=== PATIENT | female | born 1950 | race Caucasian/White ===

== ENCOUNTER 2023-09-19 15:06 | Inpatient (IN) | payer MEDICARE, OTHER, SELFPAY ==
[2023-09-19] VITALS (8 sets, daily range): BP systolic 92–137; BP diastolic 56–83
--- NOTE | 2023-09-19 07:39 | ED.GENMED ---
History of Present Illness
General
Chief Complaint: Abdominal Pain
Source: patient
Exam Limitations: none
Time Seen by Provider: 09/19/23 07:18
Travel History
Have you had any contact with someone who has COVID-19?: No
Do you have any symptoms of coronavirus? Fever > 100 degrees, chills, cough, shortness of breath, sore throat, loss of taste or smell, muscle aches, or headache?: No
History of Present Illness
History of Present Illness:
73-year-old female with history of hyperlipidemia, hypertension GERD presents complaining of onset of chills lower and right-sided abdominal pain with nausea vomiting and diarrhea since last night. She states she has had some pieces of blood coming
out in her stool. She notes ongoing pain that radiates in a bandlike distribution around the abdomen. The pain is not pleuritic. No known sick contacts. No prior abdominal surgical history. No history of inflammatory bowel disease.
Past History
Past History
ED Past Medical History: Arrthythmia
ED Past Surgical History: None
Social History
Tobacco: Non-smoker
Employment: Employed (School nurse)
Family History
Family History: Negative Early CAD
Phy Exam
Physical Exam
Physical Exam:
General: Well-appearing female no acute respiratory distress
ENT: Normocephalic atraumatic
Heart: Regular rate and rhythm no murmurs
Lungs: Clear no wheeze or rales
Abdomen is soft tender to the lower abdomen bilaterally and more so to the right mid abdomen. Mild guarding no rebound tenderness normal bowel sounds nondistended
Extremities: No cyanosis
Course
Orders/Labs/Results
Orders:
Orders
09/19/23 07:35
0.9% Sodium Chloride 1000 ml [Nss] 1,000 ml IV BOLUS
09/19/23 07:36
CT Abd/pelvis W Iv Cont Urgent
Comment:
Reason For Exam: lower abdominal and right sided pain
09/19/23 08:19
Complete Blood Count/With Diff Urgent
09/19/23 09:20
Basic Metabolic Panel Urgent
Lipase Urgent
Magnesium Urgent
Comment: ADD ON
09/19/23 09:21
Urinalysis Reflex To Culture Urgent
Date Specimen was Collected: 09/19/23
Time Specimen was Collected: 08:50
09/19/23 11:50
LFT [Fmpys-Sayn-Pndvoya] Urgent
Potassium Urgent
09/19/23 12:30
Add On- LAB Urgent
Tests Added?: magnesium, PTH, iCal
09/19/23 12:51
Electrocardiogram (*1) Urgent
Reason for Study: QTc Monitoring
EKG- Treatment ONCE
09/19/23 12:52
Calcium Gluconate 1 gram/100mL [Calcium Gluconate] 1 gram in 100 ml IV ONCE
Piperacillin/Tazo 3.375 Gram [Zosyn] 3.375 gram in 50 ml IV NOW
Abnormal Lab Results
09/19/23 09/19/23 09/19/23
08:19 09:20 11:50
WBC 11.7 H 10^3/uL
(4.8-10.8)
RDW 15.6 H %
(11.5-14.5)
Absolute Neuts (auto) 9.8 H 10^3/uL
(1.4-6.5)
Absolute Lymphs (auto) 1.0 L 10^3/uL
(1.2-3.4)
Absolute Monos (auto) 0.8 H 10^3/uL
(0.1-0.6)
Neutrophils % 83.9 H %
(42.2-75.2)
Lymphocytes % 8.4 L %
(20.5-51.1)
Chloride 118 H mmol/L
(98-107)
Carbon Dioxide 17 L mmol/L
(22-30)
Creatinine 0.4 L mg/dL
(0.6-1.0)
Calcium 6.0 L* mg/dl
(8.4-10.2)
Total Protein 6.0 L g/dl
(6.3-8.2)
Lipase 17 L U/L
(23-300)
09/19/23 08:19
09/19/23 11:50
Vital Signs
Initial and Last Documented VS:
Initial Vital Signs
Temp Pulse Resp BP Pulse Ox
99.7 F 90 18 137/83 97
09/19/23 06:57 09/19/23 06:57 09/19/23 06:57 09/19/23 06:57 09/19/23 06:57
Last Documented Vital Signs
Temp Pulse Resp BP Pulse Ox
99.7 F 90 18 117/70 97
09/19/23 06:57 09/19/23 06:57 09/19/23 06:57 09/19/23 11:02 09/19/23 06:57
MDM/Problems Addressed
Differential Diagnosis Includes:
Abdominal pain with nausea and diarrhea. Question possible viral illness versus colitis versus appendicitis given the right side
Will check labs including lipase. Urinalysis ordered as well. Fluids ordered. CT with IV contrast ordered. Patient has a documented shellfish allergy however she has tolerated IV contrast in the past without any issues. I reviewed prior records
which demonstrated she had a CT scan in 2018 with contrast and there was no issues at that time.
Other medical issues affecting today's care may include recent initiation of Depakote for occipital neuralgia. She has had 3 doses. Do not suspect this is the source of patient's symptoms
*Critical Care Note
Total Time (30-74mins, 75-104mins- exclusive of procedures): Not Applicable
Update Note
Update Note:
Patient noted to have hypocalcemia which is new. Calcium is 6.0. Discussed this with nephrology who recommended IV calcium. This was ordered. As well as magnesium, ionized calcium and PTH. CT demonstrates 15 cm segment of colitis. Zosyn
ordered to cover. Will admit to hospital.
ED Attending Note
-
Portions of this chart may have been created with voice recognition software.� Occasional wrong word or��sound alike� substitutions may have occurred due to the inherent limitations of voice recognition software.
Discharge Plan
Departure
Patient Disposition: Admit
Date of Disposition: 09/19/23
Time of Disposition: 13:43
Admit to: Telemetry
Presentation/result/management discussed w/ accepting MD/DO: Hospitalist
Patient with high blood pressure during this ER visit?: No
Discharge Problem:
Hypocalcemia, Colitis
Prescriptions:
No Action
cyanocobalamin (vitamin B-12) [Vitamin B-12] 1,000 mcg Tablet
1,000 mcg PO MOWEFR
cholecalciferol (vitamin D3) [Vitamin D3] 25 mcg (1,000 unit) Tablet
50 mcg PO DAILY
atorvastatin 40 MG tablet
40 mg PO HS
zolmitriptan 2.5 mg tablet
2.5 mg PO DAILY PRN (Reason: migraine)
ascorbic acid (vitamin C) [Vitamin C] 500 mg Tablet
500 mg PO QPM
ferrous sulfate 325 mg (65 mg iron) Tablet
325 mg PO QPM
omeprazole 20 mg capsule,delayed release(DR/EC)
20 mg PO QPM
verapamil 240 mg tablet extended release
240 mg PO DAILY
lisinopril 5 mg tablet
5 mg PO HS
divalproex 250 mg tablet extended release 24 hr
250 mg PO BID
Referrals:
Leonila Rivera PA-C [Family Provider] -
Interventions
Interventions:
*Risk Screen - Suicide Last Done: 09/19/23 06:57
*Neglect/Abuse Screening Last Done: 09/19/23 06:57
*ED COVID-19 Vaccine History Last Done: 09/19/23 06:57
Discharge Date and Time
Print Language: NEPALI
[2023-09-19] MEDS: NSS 1000 IV (08:19)
[2023-09-19 08:44] LABS: % Basophils 0.4 % (0-2); % Eosinophils 0.1 % (0-6); % Immature Granulocytes 0.3 % (0-0.5); % Lymphocytes 8.4 % (20.5-51.1); % Monocytes 6.9 % (1.7-9.3); % Neutrophils 83.9 % (42.2-75.2); Absolute Basophils 0.1 10^3/uL (0-0.2); Absolute Monocytes 0.8 10^3/uL (0.1-0.6); Absolute Neutrophils 9.8 10^3/uL (1.4-6.5); Hematocrit 40.9 % (37.0-47.0); Mean Corp Hgb Conc. 34.2 g/dL (33.0-37.0); Mean Corpuscular Hgb 28.7 pg (27.0-31.0); Mean Corpuscular Volume 83.8 fL (81.0-99.0); Mean Platelet Volume 10.1 fL (7.4-10.4); Nucleated Red Blood Cells % 0 %; Platelet Count 281 10^3/uL (130-400); Red Blood Cell Count 4.88 10^6/uL (4.20-5.40); Red Cell Dist. Width 15.6 % (11.5-14.5); White Blood Cell Count 11.7 10^3/uL (4.8-10.8)
[2023-09-19 10:23] LABS: Blood Urea Nitrogen 8 mg/dl (7-17); Carbon Dioxide 17 mmol/L (22-30); Chloride 118 mmol/L (98-107); Glucose 77 mg/dl (70-99); Sodium 138 mmol/L (135-145); eGFR > 60.00
[2023-09-19 10:41] LABS: Lipase 17 U/L (23-300)
[2023-09-19 10:44] LABS: Urine Albumin Negative (Neg - Trace); Urine Bilirubin Negative (Negative); Urine Character Clear (Clear); Urine Color Yellow; Urine Glucose Negative (Negative); Urine Ketone Negative (Negative); Urine Leukocyte Negative (Negative); Urine Nitrite Negative (Negative); Urine Occult Blood Negative (Negative); Urine Specific Gravity 1.005 (<1.030); Urine Urobilinogen Negative (Neg - 1+)
[2023-09-19 12:11] LABS: ALT (SGPT) 16 U/L (0-35); AST (SGOT) 25 U/L (14-36); Albumin 3.7 g/dl (3.5-5.0); Alkaline Phosphatase 84 U/L (38-126); Direct Bilirubin 0.2 mg/dl (0.0-0.4); Total Bilirubin 0.7 mg/dl (0.2-1.3)
--- NOTE | 2023-09-19 14:00 | HPS.HSE ---
Addendum entered and electronically signed by Jamarcus Kumar MD 09/19/23 16:28:
Abdominal Pain onset 09/17 evening with cramping, vomiting and 4 episodes of diarrhea
No travel, unusual food or other obvious triggers
Pt seen independently and agree with [employer] note
Lungs clear
CV reg
Abd soft, tender, normal active BS
Imp: sudden onset of GI symptoms most consistent with infectious etiology, but no obvious triggers
Hypocalcemia
Pt states hx of low Ferritin
P:IVF
GI consult
lab studies
stool studies
Original Note:
Family Physician
-
Family Physician: Leonila Rivera PA-C
Chief Complaint
-
abd pain , nausea vomiting diarrhea
History of Present Illness
73-year-old female complaining of lower right-sided abdominal pain with nausea, vomiting, bloody diarrhea x 2 episodes since last night. She denies any raw foods, eating out, sick contacts, antibiotics, fever, chills, chest pain, palpitations,
shortness breath, cough, urinary symptoms. Reports last colonoscopy was June 2022 that was normal. She does report possible history of diverticulosis in the past. she reports starting Depakaote on for migraines.
Past medical history hypertension, HLD, GERD, iron deficiency anemia, anxiety, migraine headaches, diverticulosis, chronic constipation
Medical History
Past Medical History
Past Medical History: Reports Other
Additional Past Medical History:
hypertension
HLD
GERD
iron deficiency anemia
anxiety
migraine headaches
diverticulosis
chronic constipation
Past Surgical History: Reports Other
Additional Past Surgical History:
Tonsillectomy adenoidectomy
Bilateral trigger finger thumb release
Eye surgery
Social History
Tobacco: Non-smoker
Alcohol: None
Drug: None
Living: With Family
Employment: Employed (school nurse)
Family History
Family History: Other (Mother age 95, cardiac disease, dementia, father history colitis, heart disease, DM2)
Allergies / Home Medications
Allergies reflects when Allergies were last updated in [employer].
Home Medications with original date entered in [employer]
Allergy/Medication List:
Allergies
Allergy/AdvReac Type Severity Reaction Status Date / Time
shellfish derived Allergy Hives Verified 09/19/23 07:02
Home Medications
cholecalciferol (vitamin D3) 25 mcg (1,000 unit) tablet (Vitamin D3) 50 mcg PO DAILY 02/23/13
cyanocobalamin (vitamin B-12) 1,000 mcg tablet (Vitamin B-12) 1,000 mcg PO MOWEFR 02/23/13
atorvastatin 40 mg tablet 40 mg PO HS 03/10/19
ascorbic acid (vitamin C) 500 mg tablet (Vitamin C) 500 mg PO QPM 09/19/23
divalproex 250 mg tablet,extended release 24 hr 250 mg PO BID 09/19/23
escitalopram oxalate 5 mg tablet (Lexapro) 5 mg PO DAILY 09/19/23
ferrous sulfate 325 mg (65 mg iron) tablet 325 mg PO QPM 09/19/23
lisinopril 5 mg tablet 5 mg PO HS 09/19/23
omeprazole 20 mg capsule,delayed release 20 mg PO QPM 09/19/23
verapamil 240 mg tablet,extended release 240 mg PO DAILY 09/19/23
zolmitriptan 2.5 mg tablet 2.5 mg PO DAILY PRN migraine 09/19/23
Review of Systems
-
History Source: Patient
A 12 point ROS was completed and negative except as noted: Yes
Constitutional: Reports Chills; Denies Fever
EENT: Denies Sore Throat or Runny Nose
Respiratory: Denies Cough or Trouble Breathing
Cardiac: Denies Chest Pain, Diaphoresis, Palpitations or Syncope
Abdomen/GI: Reports Abdominal Pain, Nausea, Vomiting, Diarrhea and Bloody Stools (Bright red x 2)
: Denies Dysuria, Frequency, Flank Pain, Incontinence, Difficulty Voiding, Urgency or Bleeding
Musculoskeletal: Denies Joint Pain or Edema
Skin: Denies Itching or Rash
Neurological: Denies Dizzy, Headache or Weakness
Endocrine: Reports No Symptoms
Hematologic/Lymphatic: Reports No Symptoms
Psych: Reports Calm
Physical Exam
Vital Signs
Vital Signs
Temp Pulse Resp BP Pulse Ox
99.7 F 90 18 117/70 97
09/19/23 06:57 09/19/23 06:57 09/19/23 06:57 09/19/23 11:02 09/19/23 06:57
Physical Exam
General: Comfortable and Conversant; No Fever or Chills
HEENT: NormoCephalic, Anicteric, Moist mucous membranes, PERRLA, [place] Conjunctivae and No Ptosis
Respiratory: Clear; No Wheezes, Rales or Rhonchi
Cardiac: S1/S2 and Regular Rhythm; No Murmur, Rub, Gallop or Peripheral Edema
Breast: Deferred by me
GI: Soft, Non Distended, Normal Bowel Sounds, Tender (Right lower quadrant, left lower quadrant, across upper abdomen) and No Hepatosplenomegaly
Rectal: Deferred by Provider
Genito-urinary: Deferred by me
Musculoskeletal: No Clubbing, No Cyanosis and No Edema
Skin: Warm and Dry; No Rash
Neuro: AO x 3, No Motor Deficits, Nonfocal/grossly intact, Cranial Nerves Intact and No Sensory Deficits; No Slurred Speech, Facial Droop or Tremors
Psych: Calm
Laboratory Results
-
09/19/23 08:19
09/19/23 11:50
Laboratory Results
Total Bilirubin 0.7 mg/dl (0.2-1.3) 09/19/23 11:50
AST 25 U/L (14-36) 09/19/23 11:50
ALT 16 U/L (0-35) 09/19/23 11:50
Alkaline Phosphatase 84 U/L (38-126) 09/19/23 11:50
Lipase 17 U/L (23-300) L 09/19/23 09:20
Data Reviewed
-
CT Scan: Report Reviewed by me
Lab Data: Labs Reviewed by me
Impression/Plan
-
Impression/plan:
Admit to telemetry
#Acute colitis likely infectious
WBC 11.7, Hgb 14
-IV Zosyn
-clears
-IV Zofran
-Follow CBC, CMP, blood cultures x 2
-Consult GI
CT abdomen pelvis with IV contrast:
1. Moderate to severe 15 cm segment of colitis involving the right side of the transverse colon through the central transverse colon most likely infectious colitis
2. Small calcified gallstone within the gallbladder no acute cholecystitis
3. Decreased enhancement of the central uterus raising concern for thickened endometrium recommend further evaluation with pelvic ultrasound
4. 1 cm calcification right anterior margin the uterus compatible with calcified fibroid
#Acute hypocalcemia
-Check PTH, vitamin D level,Ionized CA
Calcium 6.0
-IV calcium gluconate
-Consult nephro
-Follow calcium levels, repeat calcium level at 6 PM
EK bpm, NSR, QTc 465 MS
#Chronic constipation
pt takes colace daily
- will hold
#HTN
BP 117/70
-Continue lisinopril 5 mg at bedtime, verapamil to 40 mg daily
#HLD
-Continue atorvastatin 40 mg at bedtime
#GERD
-Continue omeprazole 20 mg every afternoon
#Iron deficiency anemia
#B12 def
Hgb 14
-Continue ferrous sulfate, b12
- check iron tibc ferritin, folate b12
#Anxiety
-Continue Lexapro
#Migraine headache Hx
-As needed zolmitriptan 2.5 mg
-Continue Depakote 250 mg twice daily patient started this new medication on , 09/17/2023
DVT prophylaxis
SCDs
Full code
[2023-09-19 14:48] LABS: Vitamin D, 25-OH*** 24.4 ng/mL (30-80)
--- NOTE | 2023-09-19 15:39 | CON.GI ---
Consultation
-
Date/Time Consultation Performed: 09/19/23
Performing Provider: Marcelo Ceballos MD
Reason for Consultation: N/V/bloody diarrhea
Medical History
Chief Complaint / HPI
Chief Complaint: N/V/bloody diarrhea
History of Present Illness:
The patient is a 73-year-old female with past medical history as noted who presents with vomiting and bloody diarrhea. She was in her usual state of health until last evening when she woke with pain and describes as sharp and crampy, diffuse, with
dry heaves and normal bowel meant followed by diarrhea with blood and mucus. She denies any lightheadedness or dizziness, fever or chills. She was recently started on Depakote for cervical spine pain, lisinopril about a month ago though has had no
other issues. She is tends to be constipated usually though has had no changes in her bowel habits. Her last colonoscopy was last year and essentially unremarkable. She denies any sick contacts, travel or recent antibiotics. CT scan showed
significant colitis in the transverse colon, along with other incidental findings including thickened endometrium.
Past Medical History
Past Medical History: Other (hypertension HLD GERD iron deficiency anemia anxiety migraine headaches diverticulosis chronic constipation)
Past Surgical History: Other (Tonsillectomy adenoidectomy Bilateral trigger finger thumb release Eye surgery)
Social History
Tobacco: Non-Smoker
Alcohol: None
Family History
Family History: Reviewed & Not Pertinent
Allergies / Home Medications
Allergy/AdvReac Type Severity Reaction Status Date / Time
shellfish derived Allergy Hives Verified 09/19/23 07:02
�Medication �Instructions �Recorded
cholecalciferol (vitamin D3) 25 50 mcg PO DAILY 02/23/13
mcg (1,000 unit) tablet (Vitamin
D3)
cyanocobalamin (vitamin B-12) 1,000 mcg PO MOWEFR 02/23/13
1,000 mcg tablet (Vitamin B-12)
atorvastatin 40 mg tablet 40 mg PO HS 03/10/19
ascorbic acid (vitamin C) 500 mg 500 mg PO QPM 09/19/23
tablet (Vitamin C)
divalproex 250 mg tablet,extended 250 mg PO BID 09/19/23
release 24 hr
escitalopram oxalate 5 mg tablet 5 mg PO DAILY 09/19/23
(Lexapro)
ferrous sulfate 325 mg (65 mg 325 mg PO QPM 09/19/23
iron) tablet
lisinopril 5 mg tablet 5 mg PO HS 09/19/23
omeprazole 20 mg capsule,delayed 20 mg PO QPM 09/19/23
release
verapamil 240 mg tablet,extended 240 mg PO DAILY 09/19/23
release
zolmitriptan 2.5 mg tablet 2.5 mg PO DAILY PRN migraine 09/19/23
Review of Systems
-
All other systems: A 12 pt ROS was Negative except as stated above in HPI
Vital Signs
Temp Pulse Resp BP Pulse Ox
99.7 F 90 18 117/70 97
09/19/23 06:57 09/19/23 06:57 09/19/23 06:57 09/19/23 11:02 09/19/23 06:57
Physical Exam
Exam
General: NAD
HEENT: MMM, anicteric, no lymphadenopathy
Heart: Regular, no murmurs
Lungs: CTA bilaterally
Abdomen: normal bowel sounds, soft, mild epigastric tenderness, no rebound or guarding, no masses, bruits or ascites
Extremeties: no edema
Skin: no rashes
Results
WBC 11.7 10^3/uL (4.8-10.8) H 09/19/23 08:19
Hgb 14.0 g/dL (12.0-16.0) 09/19/23 08:19
Hct 40.9 % (37.0-47.0) 09/19/23 08:19
MCV 83.8 fL (81.0-99.0) 09/19/23 08:19
Plt Count 281 10^3/uL (130-400) 09/19/23 08:19
Absolute Neuts (auto) 9.8 10^3/uL (1.4-6.5) H 09/19/23 08:19
Sodium 138 mmol/L (135-145) 09/19/23 09:20
Potassium 4.0 mmol/L (3.5-5.1) 09/19/23 11:50
Chloride 118 mmol/L (98-107) H 09/19/23 09:20
Carbon Dioxide 17 mmol/L (22-30) L 09/19/23 09:20
BUN 8 mg/dl (7-17) 09/19/23 09:20
Creatinine 0.4 mg/dL (0.6-1.0) L 09/19/23 09:20
Calcium 6.0 mg/dl (8.4-10.2) L* 09/19/23 09:20
Total Bilirubin 0.7 mg/dl (0.2-1.3) 09/19/23 11:50
AST 25 U/L (14-36) 09/19/23 11:50
ALT 16 U/L (0-35) 09/19/23 11:50
Alkaline Phosphatase 84 U/L (38-126) 09/19/23 11:50
Lipase 17 U/L (23-300) L 09/19/23 09:20
Diagnostic Image Results:
CT:
IMPRESSION: CT findings compatible with moderate to severe 15 cm segment of colitis involving the right side of the transverse colon through the central transverse colon. This most likely represents infectious colitis.
Minimal amount of fluid along the right anterolateral margin of the liver, likely reactive from colitis.
Small calcified gallstone within the gallbladder. The gallbladder appears distended with no CT findings to suggest acute cholecystitis. Moderate hiatal hernia/partially intrathoracic stomach.
Focal area of decreased enhancement within the central uterus, raising concern for a thickened endometrium. Endometrial carcinoma is a consideration. Further evaluation with pelvic ultrasound is advised.
Prior GI Procedures:
EGD:
Colonoscopy:
07/2022:
Impression: - Preparation of the colon was fair.
- Non-bleeding internal hemorrhoids.
- Diverticulosis in the sigmoid colon and in the
descending colon.
- Mild melanosis coli in the ascending colon.
- The examination was otherwise normal.
- The examined portion of the ileum was normal.
- No specimens collected.
Assessment / Plan
-
1. Colitis: Acute, most consistent with infectious colitis given vomiting, acute symptoms and presentation. Ischemia seems less likely given distribution, much less likely thromboembolic ischemia. She does have some mild tenderness, though exam
is benign without rebound, normal hemoglobin and only mild leukocytosis. At this point would continue supportive care, IV fluids, check stool studies, clear liquids for now.
-
-
Thank you for consultation and allowing me to participate in the patient's care. Please call the transportation sales consultant GI physician during the after hours with any questions or concerns.
[2023-09-19] MEDS: ZOSYN 50 IV ×2 (15:55→22:08)
[2023-09-19] MEDS: CALCIUM GLUCONATE 100 IV (15:57)
[2023-09-19 16:12] LABS: Calcium 8.8 mg/dl (8.4-10.2)
[2023-09-19 19:10] LABS: Calcium 9.4 mg/dl (8.4-10.2)
--- NOTE | 2023-09-19 20:00 | PTCARENOTE ---
Pt. admitted from E.D., AAO x 3, NSR on monitor, vs stable, call gomez within reach.
[2023-09-19] MEDS: PROTONIX 40 MG PO (20:46)
[2023-09-19] MEDS: DEPAKOTE ER (24 HR RELEASE) 250 MG PO (20:46)
[2023-09-19] MEDS: LIPITOR 40 MG PO (20:48)
[2023-09-19] MEDS: FEOSOL 325 MG PO (20:48)
[2023-09-19] MEDS: ZESTRIL 5 MG PO (20:57)
[2023-09-19] MEDS: FLUSH (NSS) 2 FLUSH IV (22:09)
[2023-09-19] MEDS: TYLENOL 650 MG PO (22:17)
[2023-09-20 03:44] VITALS: BP 95/53
[2023-09-20] MEDS: FLUSH (NSS) 2 FLUSH IV (04:12)
[2023-09-20] MEDS: ZOSYN 50 IV ×4 (04:12→22:34)
[2023-09-20 07:53] LABS: % Basophils 0.2 % (0-2); % Eosinophils 0.2 % (0-6); % Immature Granulocytes 0.4 % (0-0.5); % Lymphocytes 11.4 % (20.5-51.1); % Monocytes 7.2 % (1.7-9.3); % Neutrophils 80.6 % (42.2-75.2); Absolute Immature Granulocytes 0.1 10^3/uL (0-0.05); Absolute Lymphocytes 1.4 10^3/uL (1.2-3.4); Absolute Monocytes 0.9 10^3/uL (0.1-0.6); Absolute Neutrophils 9.9 10^3/uL (1.4-6.5); Hematocrit 39.1 % (37.0-47.0); Mean Corp Hgb Conc. 33.2 g/dL (33.0-37.0); Mean Corpuscular Hgb 28.4 pg (27.0-31.0); Mean Corpuscular Volume 85.6 fL (81.0-99.0); Mean Platelet Volume 10.4 fL (7.4-10.4); Nucleated Red Blood Cells % 0 %; Platelet Count 268 10^3/uL (130-400); Red Blood Cell Count 4.57 10^6/uL (4.20-5.40); Red Cell Dist. Width 15.7 % (11.5-14.5); White Blood Cell Count 12.3 10^3/uL (4.8-10.8)
[2023-09-20 08:00] LABS: ALT (SGPT) 17 U/L (0-35); AST (SGOT) 26 U/L (14-36); Albumin 3.9 g/dl (3.5-5.0); Alkaline Phosphatase 99 U/L (38-126); Blood Urea Nitrogen 10 mg/dl (7-17); Carbon Dioxide 25 mmol/L (22-30); Chloride 103 mmol/L (98-107); Glucose 106 mg/dl (70-99); Iron 34 ug/dl (37-170); Potassium 3.6 mmol/L (3.5-5.1); Sodium 138 mmol/L (135-145); Total Protein 6.3 g/dl (6.3-8.2); eGFR > 60.00
[2023-09-20 08:09] LABS: Percent Saturation 12 % (20-50); Total Iron Binding Capacity 281 ug/dl (265-497)
[2023-09-20] MEDS: DEPAKOTE ER (24 HR RELEASE) 250 MG PO ×2 (08:09→20:30)
[2023-09-20] MEDS: CALAN EXTENDED RELEASE 240 MG PO (08:10)
[2023-09-20] MEDS: LEXAPRO 5 MG PO (08:10)
[2023-09-20 08:44] LABS: Ferritin 81.6 ng/ml (11.1-264.0)
[2023-09-20 09:15] LABS: Folate 14.3 ng/ml (2.76-20); Vitamin B12 854 pg/ml (239-931)
[2023-09-20 09:36] VITALS: BP 102/68; PULSE 101
[2023-09-20 11:00] VITALS: BP 91/78
--- NOTE | 2023-09-20 11:18 | W.PN.HOSP.TC ---
Today's Communication/Plan
-
advance diet pending GI evaluation
Assessment / Plan
Assessment / Plan
#Acute colitis likely infectious
though unusual that pt is no longer having diarrhea episodes and is still with significant pain
Awaiting stool cultures, but not done as pt has not produced stool
WBC 11.7-->12.3, Hgb 14-->13.0
-IV Zosyn
-clears
-IV Zofran
-Follow CBC, CMP, blood cultures x 2
-Consulted GI
CT abdomen pelvis with IV contrast: 1. Moderate to severe 15 cm segment of colitis involving the right side of the transverse colon through the central transverse colon most likely infectious colitis
2. Small calcified gallstone within the gallbladder no acute cholecystitis
3. Decreased enhancement of the central uterus raising concern for thickened endometrium recommend further evaluation with pelvic ultrasound
4. 1 cm calcification right anterior margin the uterus compatible with calcified fibroid
#Acute hypocalcemia noted on admission labs with Ca 6.0. This was repeated twice and noted to be normal, 9.4, 9.0. At this time believe that the initial level was a lab error
-was given IV calcium gluconate
-There was consider to nephro if repeat levels confirmed initial study, did not and thus will hold on consult to nephro
EK bpm, NSR, QTc 465 MS
#Chronic constipation
pt takes colace daily
- will hold
#HTN
BP 117/70
-Continue lisinopril 5 mg at bedtime, verapamil to 240 mg daily
#HLD
-Continue atorvastatin 40 mg at bedtime
#GERD
-Continue omeprazole 20 mg every afternoon
#Iron deficiency, but without anemia
#B12 854, Folate 14.3
Hgb 14
- Fe sat 12%, Ferritin 81.6
#Anxiety
-Continue Lexapro
#Migraine headache Hx
-As needed zolmitriptan 2.5 mg
-Continue Depakote 250 mg twice daily patient started this new medication on , 09/17/2023
DVT prophylaxis
SCDs
Full code
Anticipated Discharge: 24 - 48 hours
Subjective/Interval History
-
Date of Service: September 20, 2023
Still with abd pain, remains on clear liquid diet
Objective Data
-
Labs:
Laboratory Results
09/20/23
07:12
WBC 12.3 H
Hgb 13.0
Hct 39.1
Plt Count 268
Sodium 138
Potassium 3.6
Chloride 103
Carbon Dioxide 25
BUN 10
Creatinine 0.8
Glucose 106 H
Calcium 9.0
Total Bilirubin 1.0
AST 26
ALT 17
Alkaline Phosphatase 99
Vital Signs:
Vital Signs
Temp Pulse Resp BP Pulse Ox
99.3 F 97 16 95/53 97
09/20/23 03:44 09/20/23 03:44 09/20/23 03:44 09/20/23 03:44 09/20/23 03:44
I&O
09/19/23 09/20/23 09/21/23
06:59 06:59 06:59
Intake Total 340 / 340
Balance 340 / 340
Review of Systems
-
History Source: Patient and Physician (reviewed with Dr. Ceballos)
Constitutional: Denies Fever
EENT: Reports No Symptoms Reported
Respiratory: Reports No Symptoms
Cardiac: Reports No Symptoms
Abdomen/GI: Reports Abdominal Pain; Denies Nausea, Vomiting or Diarrhea
Musculoskeletal: Reports No Symptoms
Physical Exam
-
General: Well Developed, Well Nourished and No Apparent Distress
HEENT: Normocephalic, Atraumatic and Moist Mucous Membranes
Respiratory: Clear to Auscultation; Negative Wheezes, Rales or Rhonchi
Cardiac: Regular Rhythm and S1/S2
GI: Soft, Normal Bowel Sounds and Tender
Musculoskeletal: No Clubbing, No Cyanosis and No Edema
--- NOTE | 2023-09-20 14:26 | W.PN.GI.CBS2 ---
Today's Communication / Plan
-
stool studies, abd exam, monitor WBC
Assessment / Plan
-
1. Colitis: Acute, most consistent with infectious colitis given vomiting, acute symptoms and presentation. Ischemia seems less likely given distribution, much less likely thromboembolic ischemia. She does continue to have tenderness on exam. WBC
went up from 11 to 12. At this point would continue supportive care, IV fluids, empiric antibiotics, check stool studies, clear liquids for now. Hold off on advancing diet given tenderness and mild increase in WBC. If improves tomorrow can advance
to low residue.
Subjective
Subjective
Date of Service: September 20, 2023
No BM since admission
Still with pain but improving
Objective
Data Reviewed
Laboratory Data:
Laboratory Results
09/20/23 07:12
09/20/23 07:12
Laboratory Results
Magnesium 2.0 mg/dl (1.6-2.3) 09/19/23 11:50
Total Bilirubin 1.0 mg/dl (0.2-1.3) 09/20/23 07:12
AST 26 U/L (14-36) 09/20/23 07:12
ALT 17 U/L (0-35) 09/20/23 07:12
Alkaline Phosphatase 99 U/L (38-126) 09/20/23 07:12
Lipase 17 U/L (23-300) L 09/19/23 09:20
Vital Signs and I&O:
Vital Signs
Temp Pulse Resp BP Pulse Ox
99.3 F 97 16 95/53 97
09/20/23 03:44 09/20/23 03:44 09/20/23 03:44 09/20/23 03:44 09/20/23 03:44
I&O
09/19/23 09/20/23 09/21/23
06:59 06:59 06:59
Intake Total 340 / 340
Balance 340 / 340
Physical Exam
Physical Exam
GI: Tender
[2023-09-20 15:34] VITALS: BP 102/59
[2023-09-20] MEDS: PROTONIX 40 MG PO (17:22)
[2023-09-20] MEDS: FEOSOL 325 MG PO (17:22)
[2023-09-20 19:45] VITALS: BP 96/59
[2023-09-20 22:33] VITALS: BP 106/62
[2023-09-20] MEDS: LIPITOR 40 MG PO (22:33)
[2023-09-20] MEDS: TYLENOL 650 MG PO (22:33)
[2023-09-20] MEDS: ZESTRIL 5 MG PO (22:33)
[2023-09-21 03:33] VITALS: BP 107/64
[2023-09-21] MEDS: ZOSYN 50 IV ×4 (04:02→22:33)
[2023-09-21 07:00] VITALS: BP 98/61
[2023-09-21 07:47] LABS: % Basophils 0.5 % (0-2); % Eosinophils 1.5 % (0-6); % Immature Granulocytes 0.5 % (0-0.5); % Lymphocytes 16.4 % (20.5-51.1); % Monocytes 10.5 % (1.7-9.3); % Neutrophils 70.6 % (42.2-75.2); Absolute Eosinophils 0.1 10^3/uL (0-0.7); Absolute Lymphocytes 1.4 10^3/uL (1.2-3.4); Absolute Monocytes 0.9 10^3/uL (0.1-0.6); Mean Corp Hgb Conc. 33.3 g/dL (33.0-37.0); Mean Corpuscular Hgb 28.7 pg (27.0-31.0); Mean Corpuscular Volume 86.1 fL (81.0-99.0); Mean Platelet Volume 10.4 fL (7.4-10.4); Nucleated Red Blood Cells % 0 %; Platelet Count 226 10^3/uL (130-400); Red Blood Cell Count 4.18 10^6/uL (4.20-5.40); Red Cell Dist. Width 15.7 % (11.5-14.5); White Blood Cell Count 8.5 10^3/uL (4.8-10.8)
[2023-09-21 08:21] LABS: ALT (SGPT) 13 U/L (0-35); AST (SGOT) 24 U/L (14-36); Albumin 3.4 g/dl (3.5-5.0); Alkaline Phosphatase 82 U/L (38-126); Blood Urea Nitrogen 8 mg/dl (7-17); Calcium 8.7 mg/dl (8.4-10.2); Carbon Dioxide 27 mmol/L (22-30); Chloride 104 mmol/L (98-107); Glucose 88 mg/dl (70-99); Potassium 3.8 mmol/L (3.5-5.1); Sodium 137 mmol/L (135-145); Total Bilirubin 0.9 mg/dl (0.2-1.3); Total Protein 5.6 g/dl (6.3-8.2); eGFR > 60.00
[2023-09-21] MEDS: DEPAKOTE ER (24 HR RELEASE) 250 MG PO ×2 (08:23→19:23)
[2023-09-21] MEDS: CALAN EXTENDED RELEASE 240 MG PO (08:23)
[2023-09-21] MEDS: LEXAPRO 5 MG PO (08:23)
--- NOTE | 2023-09-21 08:23 | W.PN.GI.CBS2 ---
Today's Communication / Plan
-
Please see assessment and plan for details.
Assessment / Plan
-
1. Colitis: Acute, most consistent with infectious colitis given vomiting, acute symptoms and presentation. Ischemia seems less likely given distribution, much less likely thromboembolic ischemia. Her exam and symptoms are much improved today.
Will advance to low residue diet and if tolerates is okay to DC from GI standpoint without antibiotics.
Subjective
Subjective
Date of Service: September 21, 2023
Patient feeling better overall, less frequent, more formed stools, still small mount of blood though less pain, tolerated liquids without difficulty.
Objective
Data Reviewed
Laboratory Data:
Laboratory Results
09/21/23 06:00
09/21/23 06:00
Laboratory Results
Magnesium 2.0 mg/dl (1.6-2.3) 09/19/23 11:50
Total Bilirubin 0.9 mg/dl (0.2-1.3) 09/21/23 06:00
AST 24 U/L (14-36) 09/21/23 06:00
ALT 13 U/L (0-35) 09/21/23 06:00
Alkaline Phosphatase 82 U/L (38-126) 09/21/23 06:00
Lipase 17 U/L (23-300) L 09/19/23 09:20
Vital Signs and I&O:
Vital Signs
Temp Pulse Resp BP Pulse Ox
98.6 F 80 16 98/61 96
09/21/23 07:00 09/21/23 07:00 09/21/23 07:00 09/21/23 07:00 09/21/23 07:00
I&O
09/20/23 09/21/23 09/22/23
06:59 06:59 06:59
Intake Total 340 / 340 100 / 100
Balance 340 / 340 100 / 100
Physical Exam
Physical Exam
General: NAD
Abdomen: normal bowel sounds, soft, minimal epigastric tenderness, no masses or bruits, no ascites
[2023-09-21] MEDS: VITAMIN B-12 1000 MCG PO (08:25)
[2023-09-21 11:00] VITALS: BP 95/57
--- NOTE | 2023-09-21 13:07 | W.PN.HOSP.TC ---
Today's Communication/Plan
-
Monitor vital signs and see plan
Continue to follow stool studies
Possible DC next 24 hours
cw abx
Assessment / Plan
Assessment / Plan
#Acute colitis likely infectious
though unusual that pt is no longer having diarrhea episodes and is still with significant pain
cdiff neg; neg giardia; other studies pending
-IV Zosyn
now on LRD
GI following
CT abdomen pelvis with IV contrast: 1. Moderate to severe 15 cm segment of colitis involving the right side of the transverse colon through the central transverse colon most likely infectious colitis
2. Small calcified gallstone within the gallbladder no acute cholecystitis
3. Decreased enhancement of the central uterus raising concern for thickened endometrium recommend further evaluation with pelvic ultrasound
4. 1 cm calcification right anterior margin the uterus compatible with calcified fibroid
#Acute hypocalcemia noted on admission labs with Ca 6.0. This was repeated twice and noted to be normal, 9.4, 9.0. At this time believe that the initial level was a lab error
-was given IV calcium gluconate
-There was consider to nephro if repeat levels confirmed initial study, did not and thus will hold on consult to nephro
EK bpm, NSR, QTc 465 MS
#Chronic constipation
pt takes colace daily
- will hold
#HTN
-Continue lisinopril 5 mg at bedtime, verapamil to 240 mg daily
#HLD
-Continue atorvastatin 40 mg at bedtime
#GERD
-Continue omeprazole 20 mg every afternoon
#Iron deficiency, but without anemia
#B12 854, Folate 14.3
Hgb 14
- Fe sat 12%, Ferritin 81.6
#Anxiety
-Continue Lexapro
#Migraine headache Hx
-As needed zolmitriptan 2.5 mg
-Continue Depakote 250 mg twice daily patient started this new medication on , 09/17/2023
DVT prophylaxis
SCDs
Full code
General: Well Developed, Well Nourished and No Apparent Distress
HEENT: Normocephalic, Atraumatic and Moist Mucous Membranes
Respiratory: Clear to Auscultation; Negative Wheezes, Rales or Rhonchi
Cardiac: Regular Rhythm and S1/S2
GI: Soft, Normal Bowel Sounds and Tender
Musculoskeletal: No Clubbing, No Cyanosis and No Edema
Anticipated Discharge: Within 24 hours
Subjective/Interval History
-
Date of Service: September 21, 2023
still has some abdominal discomfort
Objective Data
-
Labs:
Laboratory Results
09/21/23
06:00
WBC 8.5
Hgb 12.0
Hct 36.0 L
Plt Count 226
Sodium 137
Potassium 3.8
Chloride 104
Carbon Dioxide 27
BUN 8
Creatinine 0.9
Glucose 88
Calcium 8.7
Total Bilirubin 0.9
AST 24
ALT 13
Alkaline Phosphatase 82
Vital Signs:
Vital Signs
Temp Pulse Resp BP Pulse Ox
98.9 F 80 14 95/57 97
09/21/23 11:00 09/21/23 11:00 09/21/23 11:00 09/21/23 11:00 09/21/23 11:00
I&O
09/20/23 09/21/23 09/22/23
06:59 06:59 06:59
Intake Total 340 / 340 100 / 100
Balance 340 / 340 100 / 100
[2023-09-21 15:00] VITALS: BP 97/59
[2023-09-21] MEDS: FEOSOL 325 MG PO (16:26)
[2023-09-21] MEDS: PROTONIX 40 MG PO (17:15)
[2023-09-21] MEDS: LIPITOR 40 MG PO (19:23)
[2023-09-21 19:27] VITALS: BP 108/54
[2023-09-21] MEDS: TYLENOL 650 MG PO (22:36)
[2023-09-21 23:00] VITALS: BP 105/68
[2023-09-22 03:00] VITALS: BP 115/71
[2023-09-22] MEDS: ZOSYN 50 IV ×2 (04:14→10:20)
--- NOTE | 2023-09-22 06:58 | W.PN.GI.CBS2 ---
Today's Communication / Plan
-
outpatient f/u with Dr. Cervantes
Assessment / Plan
-
Colitis: Acute, most consistent with infectious colitis
symptoms improving and wbc now normal
- lactose free diet
- can stop antibiotics
ok for d/c and f/u with Dr. Cervantes
Subjective
Subjective
Date of Service: September 22, 2023
Pt feels much better, no abd pain
Objective
Data Reviewed
Laboratory Data:
Laboratory Results
09/21/23 06:00
09/21/23 06:00
Laboratory Results
Magnesium 2.0 mg/dl (1.6-2.3) 09/19/23 11:50
Total Bilirubin 0.9 mg/dl (0.2-1.3) 09/21/23 06:00
AST 24 U/L (14-36) 09/21/23 06:00
ALT 13 U/L (0-35) 09/21/23 06:00
Alkaline Phosphatase 82 U/L (38-126) 09/21/23 06:00
Lipase 17 U/L (23-300) L 09/19/23 09:20
Vital Signs and I&O:
Vital Signs
Temp Pulse Resp BP Pulse Ox
98.3 F 71 18 115/71 97
09/22/23 03:00 09/22/23 03:00 09/22/23 03:00 09/22/23 03:00 09/22/23 03:00
I&O
09/20/23 09/21/23 09/22/23
06:59 06:59 06:59
Intake Total 340 / 340 100 / 100 180 / 180
Balance 340 / 340 100 / 100 180 / 180
Physical Exam
Physical Exam
GI: Soft, Non Distended and Non Tender
[2023-09-22] MEDS: LEXAPRO 5 MG PO (07:47)
[2023-09-22] MEDS: DEPAKOTE ER (24 HR RELEASE) 250 MG PO (07:47)
[2023-09-22] MEDS: CALAN EXTENDED RELEASE 240 MG PO (07:47)
[2023-09-22 07:51] VITALS: BP 119/81
[2023-09-22] MEDS: IMODIUM 2 MG PO (10:20)
[2023-09-22] MEDS: TYLENOL 650 MG PO (10:23)
--- NOTE | 2023-09-22 10:52 | W.PN.HOSP.TC ---
Today's Communication/Plan
-
Monitor vital signs see plan
DC further antibiotics
Discharge today with outpatient GI follow-up
Hold lisinopril on discharge, can restart when blood pressure greater than 140/90
Time of discharge 37 minutes
Assessment / Plan
Assessment / Plan
#Acute colitis likely infectious
cdiff neg; neg giardia; other studies pending
DC further antibiotics
now on LRD
GI following
Patient will follow-up with GI outpatient
Imodium
CT abdomen pelvis with IV contrast: 1. Moderate to severe 15 cm segment of colitis involving the right side of the transverse colon through the central transverse colon most likely infectious colitis
2. Small calcified gallstone within the gallbladder no acute cholecystitis
3. Decreased enhancement of the central uterus raising concern for thickened endometrium recommend further evaluation with pelvic ultrasound
4. 1 cm calcification right anterior margin the uterus compatible with calcified fibroid
#Acute hypocalcemia noted on admission labs with Ca 6.0. This was repeated twice and noted to be normal, 9.4, 9.0. At this time believe that the initial level was a lab error
-was given IV calcium gluconate
-There was consider to nephro if repeat levels confirmed initial study, did not and thus will hold on consult to nephro
EK bpm, NSR, QTc 465 MS
#Chronic constipation
pt takes colace daily
- will hold
#HTN
-Hold lisinopril, continue verapamil to 240 mg daily
#HLD
-Continue atorvastatin 40 mg at bedtime
#GERD
-Continue omeprazole 20 mg every afternoon
#Iron deficiency, but without anemia
#B12 854, Folate 14.3
Hgb 12
- Fe sat 12%, Ferritin 81.6
#Anxiety
-Continue Lexapro
#Migraine headache Hx
-As needed zolmitriptan 2.5 mg
-Continue Depakote 250 mg twice daily patient started this new medication on , 09/17/2023
DVT prophylaxis
SCDs
Full code
General: Well Developed, Well Nourished and No Apparent Distress
HEENT: Normocephalic, Atraumatic and Moist Mucous Membranes
Respiratory: Clear to Auscultation; Negative Wheezes, Rales or Rhonchi
Cardiac: Regular Rhythm and S1/S2
GI: Soft, Normal Bowel Sounds and Tender
Musculoskeletal: No Clubbing, No Cyanosis and No Edema
Anticipated Discharge: Today
Subjective/Interval History
-
Date of Service: September 22, 2023
Abdominal pain is better
Objective Data
-
Vital Signs:
Vital Signs
Temp Pulse Resp BP Pulse Ox
97.9 F 71 18 119/81 96
09/22/23 07:51 09/22/23 07:51 09/22/23 07:51 09/22/23 07:51 09/22/23 07:51
I&O
09/21/23 09/22/23 09/23/23
06:59 06:59 06:59
Intake Total 100 / 100 180 / 180
Balance 100 / 100 180 / 180
--- NOTE | 2023-09-22 10:57 | W.DCSUMMARY ---
Discharge Summary
Discharge Data
Date of Admission: 09/19/23
Date of Discharge: 09/22/23
-
Pending Results: No
Hospital Course
73-year-old female with past medical history of hypertension, hyperlipidemia, GERD, iron deficiency anemia, anxiety, migraine came to the hospital with abdominal pain and diarrhea concerning for acute colitis. CT scan was consistent with possible
infectious colitis. Patient was seen by GI throughout hospitalization. C. difficile was checked which was negative. Other stool studies were also negative. It was determined that patient symptoms could likely be secondary to infectious colitis.
Patient was able to tolerate low residue diet prior to discharge. Patient was initially started on antibiotics which was discontinued prior to discharge. On this hospitalization patient also had acute hypocalcemia which over time improved. Once
patient symptoms continue to get better she was then discharged home with instructions to follow-up with all her physicians outpatient. On discharge her lisinopril was held and she was instructed to restart when her blood pressure is high.
Discharge Plan
-
Patient Disposition: Home (Routine Discharge)
Discharge Diagnosis/Procedures: Acute colitis, likely infectious
Hypocalcemia
Diet: Low Fiber
Activity: No restrictions
Driving Restrictions: As prior to admission
Bathing Restrictions: None
Referrals:
Larissa Cervantes MD [Active] -
Leonila Rivera PA-C [Family Provider] - in less than 1 week
Prescriptions:
New
acetaminophen 325 mg Tablet
650 mg PO Q4HPRN PRN (Reason: mild pain/MORALEZ/temp>100.5) Qty: 0 0RF
loperamide [Imodium A-D] 2 mg tablet
2 mg PO QID PRN (Reason: loose stool) Qty: 30 0RF
Continued
cyanocobalamin (vitamin B-12) [Vitamin B-12] 1,000 mcg Tablet
1,000 mcg PO MOWEFR
cholecalciferol (vitamin D3) [Vitamin D3] 25 mcg (1,000 unit) Tablet
50 mcg PO DAILY
atorvastatin 40 MG tablet
40 mg PO HS
zolmitriptan 2.5 mg tablet
2.5 mg PO DAILY PRN (Reason: migraine)
ascorbic acid (vitamin C) [Vitamin C] 500 mg Tablet
500 mg PO QPM
ferrous sulfate 325 mg (65 mg iron) Tablet
325 mg PO QPM
omeprazole 20 mg capsule,delayed release(DR/EC)
20 mg PO QPM
verapamil 240 mg tablet extended release
240 mg PO DAILY
divalproex 250 mg tablet extended release 24 hr
250 mg PO BID
escitalopram oxalate [Lexapro] 5 mg Tablet
5 mg PO DAILY
Held
lisinopril 5 mg tablet
5 mg PO HS
Hold Instructions: restart when blood pressure greater than 140/90
Discharge Orders:
Discharge Patient (As Directed); Ordered 09/22/23
Ordered By: Diogenes Copeland
Discharge Date and Time
Discharge Date/Time: 09/22/23 12:08
Print Language: QATARI
[2023-09-22 11:00] VITALS: BP 94/54
[2023-09-22 11:20] LABS: Intact PTH 103.8 pg/ml (13.6-85.8)
--- NOTE | 2023-09-22 11:27 | CM ---
Late entry, patient seen bedside.
IA completed.
lives with spouse 2 story home.
Independent prior to admission without assistive devices.
IMM completed.
PMD; EVARISTO Vera
Pharmacy: [facility]
Plan Home no needs.
== END 2023-09-22 12:08 | disposition home or self-care (01) | DRG 392 ==
LOC: 4 WEST ACU 15:06
PROVIDERS: Clinical Nurse Specialist Family Health; Physician Assistant; ADMITTING PHYSICIAN Internal Medicine; ATTENDING PHYSICIAN Internal Medicine; CONSULT PHYSICIAN Internal Medicine Gastroenterology; EMERGENCY PHYSICIAN Emergency Medicine; FAMILY PHYSICIAN Physician Assistant Medical
DX: A09 Infectious gastroenteritis and colitis, unspecified (principal); I10 Essential (primary) hypertension; E83.51 Hypocalcemia; K80.20 Calculus of gallbladder without cholecystitis without obstruction; E61.1 Iron deficiency; E78.5 Hyperlipidemia, unspecified; F41.9 Anxiety disorder, unspecified; G43.909 Migraine, unspecified, not intractable, without status migrainosus; K21.9 Gastro-esophageal reflux disease without esophagitis; K44.9 Diaphragmatic hernia without obstruction or gangrene; K57.30 Diverticulosis of large intestine without perforation or abscess without bleeding; K59.09 Other constipation; K63.89 Other specified diseases of intestine; K64.8 Other hemorrhoids; R93.89 Abnormal findings on diagnostic imaging of other specified body structures; Z79.899 Other long term (current) drug therapy
CPT/HCPCS: 74177; 80048; 80053; 80076; 81003; 82306; 82310; 82607; 82728; 82746; 83540; 83550; 83690; 83735; 83970; 84132; 85025; 87045; 87046; 87324; 87328; 87329; 87427; 87449; 89055; 93005; 96361; 96365; 96375; 97161; 97165; 99285; Q9967

== ENCOUNTER → 2023-10-15 10:35 | Outpatient (REF) | payer MEDICARE, OTHER, SELFPAY | LOC: HWWDC 10:35 | PROVIDERS: ATTENDING PHYSICIAN Nurse Practitioner Obstetrics & Gynecology; FAMILY PHYSICIAN Physician Assistant Medical | DX: Z12.31 Encounter for screening mammogram for malignant neoplasm of breast (principal) | CPT/HCPCS: 77063; 77067 ==

== ENCOUNTER → 2023-10-20 10:25 | Outpatient (REF) | payer MEDICARE, OTHER, SELFPAY | LOC: HWRAD 10:25 | PROVIDERS: ATTENDING PHYSICIAN Physician Assistant Medical | DX: R93.89 Abnormal findings on diagnostic imaging of other specified body structures (principal) | CPT/HCPCS: 76830; 76856 ==

== ENCOUNTER → 2024-03-22 11:17 | Outpatient (REF) | payer MEDICARE, OTHER, SELFPAY | LOC: DHCBC/DCA 11:17 | PROVIDERS: ATTENDING PHYSICIAN Internal Medicine Cardiovascular Disease; FAMILY PHYSICIAN Physician Assistant Medical | DX: R07.89 Other chest pain (principal) | CPT/HCPCS: 78452; 93017; A9500 ==

== ENCOUNTER → 2024-07-04 11:12 | Outpatient (REF) | payer MEDICARE, OTHER, SELFPAY | LOC: HWRAD 11:12 | PROVIDERS: ATTENDING PHYSICIAN Physician Assistant Medical | DX: M81.0 Age-related osteoporosis without current pathological fracture (principal) | CPT/HCPCS: 77080 ==

== ENCOUNTER → 2024-10-18 10:19 | Outpatient (REF) | payer MEDICARE, OTHER, SELFPAY | LOC: HWWDC 10:19 | PROVIDERS: ATTENDING PHYSICIAN Obstetrics & Gynecology Gynecology; FAMILY PHYSICIAN Physician Assistant Medical | DX: Z12.31 Encounter for screening mammogram for malignant neoplasm of breast (principal) | CPT/HCPCS: 77063; 77067 ==

== ENCOUNTER → 2025-03-14 08:23 | Outpatient (REF) | payer MEDICARE, OTHER, SELFPAY | LOC: DHSLP 08:23 | PROVIDERS: ATTENDING PHYSICIAN Internal Medicine; FAMILY PHYSICIAN Physician Assistant Medical | DX: G47.30 Sleep apnea, unspecified (principal); R06.83 Snoring | CPT/HCPCS: 95800 ==